=== PATIENT | female | born 1990 | race Caucasian/White ===

== ENCOUNTER 2018-01-01 11:36 | Day surgery (SDC) | payer OTHER ==
[2018-01-01] MEDS ORDERED: ROCURONIUM 50 MG INJ (14:58)
[2018-01-01] MEDS ORDERED: NEOSTIGMINE 3 MG/3 ML SYRINGE (14:58)
[2018-01-01] MEDS ORDERED: MEPERIDINE 100 MG INJ (14:58)
[2018-01-01] MEDS ORDERED: SUCCINYLCHOLINE CHLORIDE 100 MG/5 ML SYG IV (14:58)
[2018-01-01] MEDS ORDERED: PROPOFOL 20 ML (14:58)
[2018-01-01] MEDS ORDERED: LIDOCAINE 2% (SDV) 5 ML INJ (14:58)
[2018-01-01] MEDS ORDERED: GLYCOPYRROLATE 0.4 MG INJ (14:58)
[2018-01-01] MEDS ORDERED: ONDANSETRON 4 MG INJ IV (15:00)
[2018-01-01] MEDS ORDERED: METOCLOPRAMIDE 10 MG INJ IV (15:00)
[2018-01-01] MEDS ORDERED: DIPHENHYDRAMINE 50 MG INJ IV (15:00)
[2018-01-01] MEDS ORDERED: OXYCODONE/ACETAMINOPHEN (5/325) TAB PO (15:00)
[2018-01-01] MEDS ORDERED: HYDROmorphONE 1 MG/5 ML IV SYRINGE IV ×3 (15:00)
[2018-01-01] MEDS ORDERED: FENTAnyl 50 MCG/ML VIAL IV ×3 (15:00)
[2018-01-01] MEDS ORDERED: MIDAZOLAM 1 MG/ML 2 ML INJ IV (15:00)
[2018-01-01] MEDS ORDERED: MEPERIDINE 25 MG INJ IV (15:00)
[2018-01-01] MEDS ORDERED: CLINDAMYCIN 600 MG/D5W (PMX) 50 ML IVPB (15:21)
[2018-01-01] MEDS: GELATIN SIZE 100 SPONGE (15:44)
[2018-01-01] MEDS: THROMBIN 5000 UNIT VIAL (15:45)
[2018-01-01] MEDS ORDERED: METOCLOPRAMIDE 10 MG INJ (15:55)
[2018-01-01] MEDS ORDERED: ONDANSETRON 4 MG INJ (15:55)
[2018-01-01] MEDS: OXYCODONE/ACETAMINOPHEN (5/325) TAB PO (18:03)
== END 2018-01-01 18:40 | disposition home or self-care (01) ==
LOC: SDS 11:36
DX: D11.0 Benign neoplasm of parotid gland (principal); J45.909 Unspecified asthma, uncomplicated
CPT/HCPCS: 42415; 84703